=== PATIENT | female | born 1975 | race Two or more races ===

== ENCOUNTER 2016-05-06 09:23 | Emergency (ER) | payer MEDICAID ==
--- NOTE | 2016-05-06 10:59 | RAD ---
EXAMINATION:CHEST - 2 VIEWS CLINICAL INDICATION: Respiratory symptoms. COMPARISON:none FINDINGS: The cardiomediastinal silhouette is within normal limits. There is no adenopathy identified. There is no pleural effusion. The lungs are clear. The osseous structures are unremarkable for age. IMPRESSION: Negative PA and lateral views of the chest. No acute cardiopulmonary process is identified.
== END 2016-05-06 13:55 | disposition home or self-care (01) ==
LOC: ED 09:23
DX: S20.211A Contusion of right front wall of thorax, initial encounter (principal); W01.0XXA Fall on same level from slipping, tripping and stumbling without subsequent striking against object, initial encounter; Y93.01 Activity, walking, marching and hiking